=== PATIENT | male | born 1995 | race Two or more races ===

== ENCOUNTER 2016-11-16 11:53 | Inpatient (IN) | payer OTHER ==
[~2016-11-16] VITALS: Ht 188 cm; Wt 75.7 kg
--- NOTE | ~2016-11-16 | US6 ---
[facility] A Service of [facility] RADIOLOGY TEXT RESULTS PATIENT: KOURTNEY YU JR LOCATION: A 217-01 : [birth year] UNIT #: [id number] AGE: [address]: Lei Dixon MD SEX: M ORDER DR: [id number] [facility] [address] [place], [place] [address] [id number] I MR#: [id number] #: [id number] NAME: KOURTNEY YU JR : 1995 SEX: M STUDY DATE/TIME: 11/16/2016 17:57 UNIT: [facility] ROOM: [facility] STUDY DESCRIPTION: US Abdominal Limited Attending Physician: Lei Dixon M.D. Ordering Physician: Wendy León M.D. Primary Care Physician: Brian Moore M.D. MEDICAL IMAGING REPORT This report is preliminary unless electronic signature is present EXAM Ultrasound abdomen limited HISTORY Nausea, vomiting, abdominal pain 1 day. History of pancreatitis. COMMENT Real-time ultrasonography of the abdomen performed. There is comparison CT abdomen and pelvis from 11/16/2016. The proximal pancreas is unremarkable. On review of the CT scan the findings concerning for pancreatitis are seen in the distal pancreas. This is better studied on the CT scan. There is no intrahepatic or extrahepatic biliary ductal dilatation. The liver is essentially normal in size and echotexture. Right kidney measures 1.1 x 4.5 cm x 6.5 cm and the cortical thickness is 1.2 cm. There is no hydronephrosis, shadowing calculus or focal mass suspected. The gallbladder is unremarkable without wall thickening, pericholecystic fluid or shadowing calculus. The common duct measures 3.0 mm. The intrahepatic inferior vena cava is unremarkable. IMPRESSION 1. Essentially normal right upper quadrant ultrasound. 2. Please be aware that the inflammatory change consistent with pancreatitis was seen in the tail of the pancreas on the earlier CT scan. This area is not well evaluated on an ultrasound. Dictated by... Kristina Castle M.D. THIS IS AN ELECTRONICALLY VERIFIED REPORT Kristina Castle M.D. at 11/17/2016 10:23 AM [facility] A Service of [facility] RADIOLOGY TEXT RESULTS PATIENT: KOURTNEY YU JR LOCATION: [facility] 217-01 : [birth year] UNIT #: [id number] AGE: [address]: Lei Dixon MD SEX: M ORDER DR: DAISY/noelle TD: 11/17/2016 09:02 JOB #: [id number] MEDICAL IMAGING REPORT Page 1 of 1 COPY
--- NOTE | ~2016-11-16 | HP ---
Unit #: [id number] #: [id number] Patient: KOURTNEY YU JR [id number] [address] [address] [id number] I MR#: [id number] NAME: KOURTNEY YU JR ROOM: [facility] Age: 21 Sex: M Admission Date: 11/16/2016 : 1995 Attending Physician: Wendy León M.D. Primary Care Physician: Brian Moore M.D. HISTORY AND PHYSICAL CHIEF COMPLAINT Nausea, vomiting, abdominal pain. HISTORY OF PRESENT ILLNESS The patient is a 21-year-old male with past medical history of asthma, who presented to the emergency department for evaluation of the above. The patient states that he was in his usual state of health until the morning of admission around 3:00 when he woke from sleep with abdominal pain, vomiting and diarrhea. The abdominal pain is everywhere but worse on the left side. He describes it as "stabbing." It has been fairly constant in nature. There are no exacerbating or alleviating factors. He denies any similar pain. He has had more than 10 bouts of nonbloody emesis within the past 24 hours and four to five bouts of diarrhea. He denies any urinary symptoms. No fever. In the emergency department a CT of the abdomen and pelvis was done and showed findings suggestive of pancreatitis although colitis cannot be entirely excluded. The patient's lipase is 178, white blood cell count 13.4. He was given 1 L of normal saline as well as 4 mg of morphine, 4 mg of Zofran in the emergency department. He is being admitted to [facility] for evaluation and further treatment. PAST MEDICAL HISTORY Asthma not requiring any hospitalizations. PAST SURGICAL HISTORY None. SOCIAL HISTORY The patient lives with his mom. He smokes a few cigarettes daily. He also smokes marijuana. He reports occasional alcohol use. He is currently working on his Diasome. FAMILY HISTORY Family history is notable for his mother having chronic back pain. ALLERGIES No known allergies. HOME MEDICATIONS Home medications include: 1. Advair 250/50 inhaled b.i.d. Unit #: [id number] #: [id number] Patient: YU,KOURTNEY A JR 2. Symbicort 160/4.5 inhaled b.i.d. 3. Zyrtec 10 mg daily. REVIEW OF SYSTEMS A complete review of systems is negative except as indicated in the HPI. DIAGNOSTIC STUDIES IMAGING: CT of the abdomen and pelvis shows findings suggestive of pancreatitis although cannot entirely exclude colitis. LABORATORY: Complete blood count notable for white blood cell count of 13.4, hemoglobin 16.2, urinalysis notable for trace protein. Comprehensive metabolic panel notable for a glucose of 112, albumin is 5.3, lipase 178. PHYSICAL EXAMINATION VITAL SIGNS: Temperature is 97.7. Pulse 68. Respirations 17. Blood pressure 138/71. Oxygen saturation 100% on room air. GENERAL: The patient is a very pleasant male who is awake and alert, in no acute distress. HEENT: The head is atraumatic. Mucous membranes are dry. NECK: Neck is supple. Trachea is midline. CARDIOVASCULAR: Regular rate and rhythm. LUNGS: Lungs are clear to auscultation bilaterally with no increased work of breathing. ABDOMEN: Abdomen is soft. He is tender to palpation in the epigastric and left side of the abdomen. Bowel sounds are present in all four quadrants. EXTREMITIES: Nontender with no pedal edema. NEUROLOGOIC: The patient is awake and alert. He follows commands. PSYCHIATRIC: Mood and affect are normal. The patient is cooperative. SKIN: Demonstrates scattered tattoos. ASSESSMENT The patient is a 21-year-old male with: 1. Acute pancreatitis. The patient's lipase is 178. He denies significant alcohol history. 2. Leukocytosis with no other SIRS criteria. 3. Asthma. 4. Tobacco abuse. PLAN 1. Admit to med/surg. 2. N.p.o. except ice chips. 3. Normal saline at 125 mL an hour. 4. P.r.n. morphine. 5. P.r.n. Zofran. 6. Right upper quadrant ultrasound for further evaluation of pancreatitis. 7. Fasting lipid panel. 8. Blood cultures x2. 9. Stool studies including ova and parasites, C. diff, culture and sensitivity. 10. Zosyn for possible colitis pending further workup. 11. Supplemental oxygen. 12. P.r.n. DuoNebs. 13. Repeat labs in the morning including amylase and lipase. 14. SCDs for DVT prophylaxis. Unit #: [id number] #: [id number] Patient: KOURTNEY YU JR 15. Additional workup and consultants based on above. Dictated by David Nielsen/jose manuel TD: 11/16/2016 19:33 JOB #: [id number] HISTORY AND PHYSICAL Page 1 of 1 X Wendy León MD X HISTORY AND PHYSICAL
--- NOTE | ~2016-11-16 | CT2 ---
[facility] A Service of [facility] RADIOLOGY TEXT RESULTS PATIENT: KOURTNEY YU JR LOCATION: [facility] 217-01 : [birth year] UNIT #: [id number] AGE: [address]: Lei Dixon MD SEX: M ORDER DR: [id number] [facility] [address]. [place], [place] [address] [id number] I MR#: [id number] #: [id number] NAME: KOURTNEY YU JR : 1995 SEX: M STUDY DATE/TIME: 11/16/2016 15:31 UNIT: [facility] ROOM: [facility] STUDY DESCRIPTION: CT Abd and Pelv W Cont Attending Physician: Wendy León M.D. Ordering Physician: Yosef Manrique M.D. Primary Care Physician: Brian Moore M.D. MEDICAL IMAGING REPORT This report is preliminary unless electronic signature is present EXAM Abdomen and pelvis CT with contrast HISTORY Left-sided abdominal pain and vomiting since early this morning. TECHNIQUE Axial images were obtained with intravenous contrast. 100 mL of Isovue was used. This CT exam was performed with one or more of the following radiation dose reduction techniques: Automatic exposure control, adjustment of mA and/or kV according to patient size, and iterative reconstruction. FINDINGS The kidneys, adrenals, liver and spleen have a normal appearance. Inflammatory changes are seen in the left upper quadrant, between the tail of the pancreas and the splenic flexure of the colon. The tail of the pancreas appears to be mildly edematous. This could reflect either pancreatitis in the tail of the pancreas with adjacent inflammatory reaction around the colon or a focal area of colitis extending toward the tail of the pancreas. I favor this being a primary pancreatic abnormality. There is no evidence of pseudocyst. There is no evidence of ascites. No enlarged retroperitoneal lymph nodes are seen. In the pelvis, there is no evidence of adenopathy, mass or fluid collection. IMPRESSION Left upper quadrant inflammatory change. I favor this being a focal area of pancreatitis in the tail of the pancreas extending toward the splenic flexure of the colon. I cannot completely exclude this being a primary colonic inflammatory process with inflammation extending toward the tail of the pancreas. No abscess. No pseudocyst. [facility] A Service of [facility] RADIOLOGY TEXT RESULTS PATIENT: KOURTNEY YU JR LOCATION: [facility] 217-01 : [birth year] UNIT #: [id number] AGE: [address]: Lei Dixon MD SEX: M ORDER DR: Dictated by... Juan Araujo M.D. THIS IS AN ELECTRONICALLY VERIFIED REPORT Juan Araujo M.D. at 11/21/2016 2:13 PM RLF/kaelyn TD: 11/16/2016 23:50 JOB #: [id number] MEDICAL IMAGING REPORT Page 1 of 1 COPY
--- NOTE | ~2016-11-16 | DS ---
Unit #: [id number] #: [id number] Patient: KOURTNEY YU JR [id number] [address] [address] [id number] I MR#: [id number] NAME: KOURTNEY YU JR ROOM: [facility] Age: 21 Sex: M Admission Date: 11/16/2016 : 1995 Discharge Date: 11/18/2016 Attending Physician: Lei Dixon M.D. Primary Care Physician: Brian Moore M.D. DISCHARGE SUMMARY REASON FOR ADMISSION Abdominal pain/acute pancreatitis. HISTORY OF PRESENT ILLNESS/HOSPITAL COURSE The patient is a very pleasant 21-year-old male with a prior history of asthma, occasional marijuana use, who presented secondary to severe abdominal pain. He was evaluated in the emergency room, underwent CT abdomen and pelvis, showed findings consistent with pancreatitis, possible colitis and initial lipase level was elevated at 178. White count was elevated at 13.4. He was appropriately treated, placed on Med/Surg floor. He underwent an ultrasound of his gallbladder to rule out the possibility of underlying gallstones which was negative. Blood cultures were also negative. His lipase trended down to normal on routine medications. At time of discharge today, it is currently 30. His CBC shows a white count of 9.2, hemoglobin 15.1. He has tolerated diet well without difficulty and he has required only minimal pain medications. He will now be discharged home in stable condition. Outpatient followup PCP in 7-10 days. FINAL DISCHARGE DIAGNOSES 1. Abdominal pain. 2. Acute pancreatitis. 3. Marijuana use. 4. Prior history of asthma. FINAL DISCHARGE MEDICATIONS 1. Symbicort 160/4.5, two puffs b.i.d. 2. Albuterol MDI, one to two puffs q.6 p.r.n. 3. Pepcid 20 mg p.o. b.i.d. DISCHARGE CONDITION Stable. DISCHARGE DISPOSITION Home. Dictated by... Lei Dixon M.D. ISN/df Unit #: [id number] #: [id number] Patient: KOURTNEY YU JR TD: 11/21/2016 10:58 JOB #: [id number] DISCHARGE SUMMARY Page 1 of 1 X Lei Dixon MD DISCHARGE SUMMARY
[~2016-11-16 11:53] MED LIST: ADVAIR 1001 DISK W/D PO; COMBIVENT INH14.7 GM INH; SINGULAIR PO; ZYRTEC PO
[2016-11-16 12:33] LABS: URINE SOURCE CLEAN CATCH
[2016-11-16 12:42] LABS: URINE APPEARANCE TURBID; URINE BILIRUBIN NEG (NEG); URINE BLOOD NEG (NEG); URINE COLOR YELLOW; URINE GLUCOSE NEG (NEG); URINE KETONE NEG (NEG); URINE LEUKOCYTE ESTERASE NEG (NEG); URINE NITRATE NEG (NEG); URINE PROTEIN TRACE (NEG); URINE UROBILINOGEN 0.2 MG/DL (NEG)
[2016-11-16 13:26] LABS: CULTURE INDICATED? NO
[2016-11-16 13:50] LABS: BASOPHIL% 0.2 % (0-2.5); EOSINOPHIL% 0.1 % (0.0-7.0); HEMATOCRIT 48.6 % (38.0-50.0); HEMOGLOBIN 16.2 gm/dL (13.0-16.0); LYMPHOCYTE# 0.7 X10e3 (1.0-3.5); LYMPHOCYTE% 5.4 % (17.0-45.0); MEAN CELL VOLUME 86.5 FL (83-96); MEAN CORPUSCULAR HEMOGLOBIN 28.8 PG (28-34); MEAN CORPUSCULAR HGB CONC 33.3 g/dL (30-36); MEAN PLATELET VOLUME 8.6 FL (6.5-11.5); MONOCYTE# 0.9 X10e3 (0-1.0); MONOCYTE% 6.4 % (3.0-12.0); NEUTROPHIL# 11.8 X10e3 (1.5-7.1); NEUTROPHIL% 87.9 % (40-75); PLATELET COUNT 207 X10e3 (140-420); RED BLOOD COUNT 5.62 X10e (3.90-5.60); RED CELL DISTRIBUTION WIDTH 14.7 % (11.0-15.5); WHITE BLOOD COUNT 13.4 X10e3 (4.0-10.5)
[2016-11-16 13:51] LABS: DIFF IND NO
[2016-11-16 14:18] LABS: ALBUMIN SERUM 5.3 g/dL (3.5-5.0); BILIRUBIN, DIRECT 0.1 mg/dL (0.0-0.2); BILIRUBIN,INDIRECT 0.7 mg/dL (0.0-0.9); BILIRUBIN,TOTAL 0.8 mg/dL (0.2-2.0); BUN/CREATININE RATIO 14.44; CALCIUM SERUM 9.8 mg/dL (8.4-10.2); CREATININE SERUM 0.9 mg/dL (0.6-1.4); GLOM FILT RATE Estimated 122.5 mL/min (>60); POTASSIUM 4.2 mmol/L (3.5-5.1); PROTEIN TOTAL SERUM 8.3 g/dL (6.0-8.3)
[2016-11-16] MEDS ORDERED: SYMBICORT INH (16:17)
[2016-11-16] MEDS ORDERED: ADVAIR 250-501 EACH INH (16:17)
[2016-11-16] MEDS ORDERED: ZYRTEC10 M2 PO (16:18)
[2016-11-16 18:49] LABS: CHOLESTEROL 159 mg/dL (0-200); HDL CHOLESTEROL 63 mg/dL (29-75); LDL CHOLESTEROL 84 mg/dL (-130); LDL/HDL RATIO 1 RATIO (0-4); TRIGLYCERIDES 59 mg/dL (10-160)
[2016-11-17 08:04] LABS: HEMATOCRIT 43.5 % (38.0-50.0); HEMOGLOBIN 14.5 gm/dL (13.0-16.0); MEAN CELL VOLUME 86.1 FL (83-96); MEAN CORPUSCULAR HEMOGLOBIN 28.8 PG (28-34); MEAN CORPUSCULAR HGB CONC 33.4 g/dL (30-36); MEAN PLATELET VOLUME 8.5 FL (6.5-11.5); RED BLOOD COUNT 5.05 X10e (3.90-5.60); RED CELL DISTRIBUTION WIDTH 14.3 % (11.0-15.5)
[2016-11-17 08:25] LABS: BILIRUBIN,TOTAL 0.7 mg/dL (0.2-2.0); CALCIUM SERUM 8.7 mg/dL (8.4-10.2); CREATININE SERUM 0.8 mg/dL (0.6-1.4); GLOM FILT RATE Estimated 128.6 mL/min (>60); POTASSIUM 3.8 mmol/L (3.5-5.1)
[2016-11-18 06:42] LABS: HEMOGLOBIN 15.1 gm/dL (13.0-16.0); MEAN CELL VOLUME 86.1 FL (83-96); MEAN CORPUSCULAR HEMOGLOBIN 28.9 PG (28-34); MEAN CORPUSCULAR HGB CONC 33.6 g/dL (30-36); MEAN PLATELET VOLUME 8.6 FL (6.5-11.5); RED BLOOD COUNT 5.23 X10e (3.90-5.60); RED CELL DISTRIBUTION WIDTH 14.5 % (11.0-15.5); WHITE BLOOD COUNT 9.2 X10e3 (4.0-10.5)
[2016-11-18 07:31] LABS: BUN/CREATININE RATIO 8.88; CALCIUM SERUM 9.5 mg/dL (8.4-10.2); CREATININE SERUM 0.9 mg/dL (0.6-1.4); GLOM FILT RATE Estimated 122.5 mL/min (>60); POTASSIUM 3.9 mmol/L (3.5-5.1)
[2016-11-18] MEDS ORDERED: ZANTAC150 MG PO (12:40)
== END 2016-11-18 13:43 | disposition home or self-care (01) | DRG 440 ==
LOC: CED 11:53 → CEDOF 17:10 → CED 17:36 → CEDOF 17:36 → C2A 18:23
PROVIDERS: Family Medicine
DX: K85.90 Acute pancreatitis without necrosis or infection, unspecified (principal); D72.829 Elevated white blood cell count, unspecified; J45.909 Unspecified asthma, uncomplicated; F17.210 Nicotine dependence, cigarettes, uncomplicated; F12.90 Cannabis use, unspecified, uncomplicated
CPT/HCPCS: 36415; 74177; 76705; 80048; 80053; 80061; 80076; 81003; 82150; 82947; 83690; 83735; 85025; 85027; 87040; 94640; 94760; 96361; 96374; 96375; 99285; C9113; J2270; J2405; J2543; J2550; Q9967